=== PATIENT | female | born 1985 | race African-American/Black ===

== ENCOUNTER 2019-10-12 17:42 | Emergency (ER) | payer OTHER ==
[~2019-10-12] VITALS: Ht 152.4 cm; Wt 61.0 kg
[2019-10-12] MEDS ORDERED: IBUPROFEN 600MG TABLET PO ONE (20:15)
[2019-10-12 22:44] VITALS: BP 126/77
== END 2019-10-12 22:45 | disposition home or self-care (01) ==
LOC: ER 17:42
DX: S63.501A Unspecified sprain of right wrist, initial encounter (principal); X58.XXXA Exposure to other specified factors, initial encounter; Y93.89 Activity, other specified; Y92.9 Unspecified place or not applicable
CPT/HCPCS: 29125; 73110; 99283